=== PATIENT | male | born 1950 | race Caucasian/White ===

== ENCOUNTER → 2024-06-01 09:49 | Outpatient (REF) | payer MEDICARE, OTHER, SELFPAY | LOC: HWRAD 09:49 | PROVIDERS: ATTENDING PHYSICIAN Nurse Practitioner Family | DX: E04.1 Nontoxic single thyroid nodule (principal) | CPT/HCPCS: 76536 ==

== ENCOUNTER → 2024-06-07 12:24 | Outpatient (REF) | payer MEDICARE, OTHER, SELFPAY ==
[2024-06-07 12:40] VITALS: BP 149/93
== END ==
LOC: RADI 12:24
PROVIDERS: ATTENDING PHYSICIAN Nurse Practitioner Family
DX: E04.1 Nontoxic single thyroid nodule (principal)
CPT/HCPCS: 88173; 10005

== ENCOUNTER → 2024-07-13 10:45 | Outpatient (REF) | payer MEDICARE, OTHER, SELFPAY | LOC: MRI 3T 10:45 | PROVIDERS: ATTENDING PHYSICIAN Surgery; FAMILY PHYSICIAN Nurse Practitioner Family | DX: R97.20 Elevated prostate specific antigen [PSA] (principal) | CPT/HCPCS: 72197; A9575 ==

== ENCOUNTER → 2024-08-08 16:05 | Outpatient (REF) | payer MEDICARE, OTHER, SELFPAY | LOC: CLAB 16:05 | PROVIDERS: ATTENDING PHYSICIAN Surgery | DX: R97.20 Elevated prostate specific antigen [PSA] (principal) | CPT/HCPCS: 88305 ==

== ENCOUNTER → 2024-09-12 09:27 | Outpatient (REF) | payer MEDICARE, OTHER, SELFPAY ==
[2024-09-12 10:50] LABS: Hematocrit 45.2 % (39.0-52.0); Hemoglobin 15.5 g/dL (13.0-18.0); Mean Corp Hgb Conc. 34.3 g/dL (33.0-37.0); Mean Corpuscular Volume 93.2 fL (80.0-94.0); Mean Platelet Volume 10.5 fL (7.4-10.4); Platelet Count 218 10^3/uL (130-400); Red Blood Cell Count 4.85 10^6/uL (4.70-6.10); Red Cell Dist. Width 12.2 % (11.5-14.5); White Blood Cell Count 7.1 10^3/uL (4.8-10.8)
[2024-09-12 11:22] LABS: Blood Urea Nitrogen 16 mg/dl (9-20); Calcium 8.8 mg/dl (8.4-10.2); Carbon Dioxide 29 mmol/L (22-30); Chloride 104 mmol/L (98-107); Glucose 105 mg/dl (70-99); Potassium 4.2 mmol/L (3.5-5.1); Sodium 138 mmol/L (135-145); eGFR > 60.00
== END ==
LOC: SDSPAT 09:27
PROVIDERS: ATTENDING PHYSICIAN Specialist; FAMILY PHYSICIAN Family Medicine
DX: Z01.818 Encounter for other preprocedural examination (principal)
CPT/HCPCS: 36415; 80048; 85027; 86850; 86900; 86901; 93005

== ENCOUNTER 2024-09-27 06:21 | Day surgery (SDC) | payer MEDICARE, OTHER, SELFPAY ==
[2024-09-12 14:05] VITALS: BMI 27.2
[2024-09-27] VITALS (17 sets, daily range): BP systolic 117–145; BP diastolic 59–112; BMI 27.2
[2024-09-27] MEDS: NEOMYCIN ENEMA 1 BOTTLE RECTAL (09:20)
[2024-09-27] MEDS: NORMOSOL-R/PLASMALYTE-A 1000 IV ×2 (09:32→18:40)
[2024-09-27] MEDS: DILAUDID 0.25 MG IV (15:03)
[2024-09-27] MEDS: ZOFRAN 4 MG IV (15:09)
[2024-09-27] MEDS: DILAUDID 0.5 MG IV ×2 (15:16→15:29)
[2024-09-27] MEDS: COLACE 100 MG PO (18:40)
[2024-09-27] MEDS: POLYSPORIN/DOUBLE ANTIBIOTIC 1 APPLIC TOPICAL (20:25)
[2024-09-27] MEDS: TORADOL 15 MG IV (22:14)
[2024-09-28 03:15] VITALS: BP 118/82
[2024-09-28] MEDS: TORADOL 15 MG IV ×2 (04:00→09:32)
--- NOTE | 2024-09-28 06:17 | PTCARENOTE ---
06:00 pt educated switch of night bag to leg bag.
[2024-09-28 06:35] LABS: Hematocrit 40.4 % (39.0-52.0); Hemoglobin 14.1 g/dL (13.0-18.0); Mean Corp Hgb Conc. 34.9 g/dL (33.0-37.0); Mean Corpuscular Hgb 31.6 pg (27.0-31.0); Mean Corpuscular Volume 90.6 fL (80.0-94.0); Mean Platelet Volume 10.4 fL (7.4-10.4); Platelet Count 212 10^3/uL (130-400); Red Blood Cell Count 4.46 10^6/uL (4.70-6.10); Red Cell Dist. Width 12.2 % (11.5-14.5); White Blood Cell Count 14.6 10^3/uL (4.8-10.8)
[2024-09-28] MEDS: COLACE 100 MG PO (06:47)
[2024-09-28 07:04] LABS: Blood Urea Nitrogen 15 mg/dl (9-20); Calcium 8.8 mg/dl (8.4-10.2); Carbon Dioxide 27 mmol/L (22-30); Chloride 105 mmol/L (98-107); Estimated Creatinine Clearance > 125 ml/min; Glucose 122 mg/dl (70-99); Potassium 4.2 mmol/L (3.5-5.1); Sodium 136 mmol/L (135-145); eGFR > 60.00
[2024-09-28 07:30] VITALS: BP 130/74
--- NOTE | 2024-09-28 08:59 | W.PN.URO.CBU ---
Today's Communication / Plan
-
discharge
Assessment / Plan
-
stable
Diagnosis
-
Date of Service: September 28, 2024
-
Patient Diagnosis: prostate cancer, s/p robotic radical prostatectomy
Post Op Day: 1
Subjective
-
expected abd-pelvic ache
Objective
-
Vital Signs
Temp Pulse Resp BP Pulse Ox
98.1 F 87 16 130/74 97
09/28/24 07:30 09/28/24 07:30 09/28/24 07:30 09/28/24 07:30 09/28/24 07:30
Intake and Output
09/27/24 09/28/24 09/29/24
06:59 06:59 06:59
Intake Total 1500 / 1500 240 / 240
Output Total 1900 / 1900 50 / 50
Balance -400 / -400 190 / 190
Intake:
Oral fluids 300 / 300 240 / 240
IV fluids (Total) 1200 / 1200
NOrmosol 300 / 300
Output:
Urine, Ingram 1900 / 1900 50 / 50
Laboratory Results
09/28/24 05:46
09/28/24 05:46
Physical Exam
-
General - well developed, well nourished, no acute distress
Chest - clear bilaterally
Abdomen - soft, non-tender, positive bowel sounds
Genitalia - Ingram with yellow urine
Skin - warm & dry with no rash
Neuro - AOx3, no motor deficits
Extremities - no clubbing, no cyanosis, no edema
Dressing - intact
--- NOTE | 2024-09-28 09:23 | CM ---
Reviewed the chart notes and spoke with the patient at the bedside. The patient resides with his spouse in a two story home with one step to enter. The patient reports no DME/VN/SNF in the past. The patient confirmed his [facility] of choice [facility]. CM consult for VN received and discussed with the patient. Patient selected VN. Referral sent in [facility]. The patient will be discharged to home with chip. CM continues to be available to patient/family
and is monitoring medical plan for needs at discharge.
Plan: Discharge to home with VN services. The patient's spouse will provide transportation home.
[2024-09-28] MEDS: NORMOSOL-R/PLASMALYTE-A IV (09:29)
[2024-09-28] MEDS: THERAGRAN 1 TABLET PO (09:31)
[2024-09-28] MEDS: MAG-TAB SR 84 MG PO (09:31)
[2024-09-28] MEDS: POLYSPORIN/DOUBLE ANTIBIOTIC 1 APPLIC TOPICAL (09:32)
[2024-09-28] MEDS: COZAAR 50 MG PO (09:32)
[2024-09-28] MEDS: CRESTOR 20 MG PO (09:32)
[2024-09-28 11:05] VITALS: BP 134/74
[2024-09-28 19:51] LABS: Hepatitis C Antibody Negative (Negative)
== END 2024-09-28 12:58 | disposition home or self-care (01) ==
LOC: SDS 06:21
PROVIDERS: ATTENDING PHYSICIAN Specialist
DX: C61 Malignant neoplasm of prostate (principal)
CPT/HCPCS: 55866; 38571; 88307; 88309; 80048; 85027; 86803; 86900; 86901